=== PATIENT | male | born 1990 | race African-American/Black ===

== ENCOUNTER 2018-04-07 06:46 | Emergency (ER) | payer OTHER ==
[~2018-04-07] VITALS: Ht 177.8 cm; Wt 68.0 kg
[~2018-04-07 06:46] MED LIST: ZOLPIDEM TARTRAT5 MG ORAL
[2018-04-07] MEDS ORDERED: XOPENEX0.63 MG/3 HHN (06:51)
--- NOTE | 2018-04-07 06:57 | Emergency Room Report ---
History of Present Illness General Chief Complaint: General Complaint Source: Patient, EMS Present Illness HPI The patient is brought in by EMS. Apparently he was trying to break in through a security gate at the [facility]. He claims someone was chasing him. He complained about some shortness of breath and told paramedics he had a history of asthma. His oxygen saturation is 98% at that time and his lungs were clear. The patient does smoke cigarettes. He denies any previous psychiatric problems and denies doing drugs at this time. He states he feels dehydrated at this time. He denies any head trauma. The chest pain, nausea vomiting diarrhea, dysuria, joint pain. No rashes. Allergies: Coded Allergies: No Known Allergies (Unverified , 04/07/18) Patient History Past Medical History: see triage record Social History: Reports: smoking, drug use - see tox Social History Narrative on streets Reviewed Nursing Documentation: PMH: Agreed; PSxH: Agreed Nursing Documentation-PMH Hx Cardiac Problems: Yes - heart murmur Hx Asthma: Yes Hx Seizures: Yes Review of Systems All Other Systems: negative except mentioned in HPI Physical Exam Vital Signs Date Time Temp Pulse Resp B/P (MAP) Pulse Ox O2 Delivery O2 Flow Rate FiO2 04/07/18 06:39 98.2 106 22 123/81 96 Room Air 98.2 Sp02 EP Interpretation: reviewed, normal General Appearance: well appearing, no apparent distress, GCS 15, thin Head: normocephalic Eyes: bilateral eye PERRL, bilateral eye Scleral Injection ENT: moist mucus membranes Neck: supple Respiratory: chest non-tender, lungs clear, normal breath sounds Cardiovascular #1: regular rate, rhythm Cardiovascular #2: 2+ radial (R) Gastrointestinal: normal inspection, normal bowel sounds, non tender, no mass, non-distended, scaphoid Genitourinary: no CVA tenderness Musculoskeletal: back normal, gait/station normal, normal range of motion Neurologic: alert, motor strength/tone normal, DTRs symmetric, sensory intact, cerebellar normal, speech normal, oriented - X2 Psychiatric: depressed affect - sleepy Skin: normal inspection, warm/dry Medical Decision Making Diagnostic Impression: Primary Impression: Amphetamine abuse Additional Impressions: Renal insufficiency UTI (urinary tract infection) Qualified Codes: N30.00 - Acute cystitis without hematuria ER Course Patient presents alleging someone was chasing him and complaining about shortness of breath. Differential includes asthma exacerbation, psychosis, drug ingestion, electrolyte imbalance amongst others. He'll be evaluated with EKG, chest x-ray and labs. The patient will receive IV hydration. Labs significant for + amphetamines, pyuria and min renal insufficiency. CXR clear. EKG no injury. Antibiotics begun for UTI. Sleeping. Improved with IV hydration. Patient stable for outpatient observation and treatment. Laboratory Tests Test 04/07/18 07:05 04/07/18 07:18 Urine Color Yellow Urine Appearance Clear Urine pH 5 (4.5-8.0) Urine Specific [place] 1.025 (1.005-1.035) Urine Protein 3+ (NEGATIVE) H Urine Glucose (UA) Negative (NEGATIVE) Urine Ketones 1+ (NEGATIVE) H Urine Occult Blood 1+ (NEGATIVE) H Urine Nitrite Negative (NEGATIVE) Urine Bilirubin Negative (NEGATIVE) Urine Urobilinogen Normal MG/DL (0.0-1.0) Urine Leukocyte Esterase 2+ (NEGATIVE) H Urine RBC 0-2 /HPF (0 - 0) H Urine WBC 10-15 /HPF (0 - 0) H Urine Squamous Epithelial Cells Occasional /LPF Urine Bacteria Occasional /HPF (NONE) Urine Opiates Screen Negative (NEGATIVE) Urine Barbiturates Screen Negative (NEGATIVE) Phencyclidine (PCP) Screen Negative (NEGATIVE) Urine Amphetamines Screen Positive (NEGATIVE) H Urine Benzodiazepines Screen Negative (NEGATIVE) Urine Cocaine Screen Negative (NEGATIVE) Urine Marijuana (THC) Screen Positive (NEGATIVE) H White Blood Count 6.0 K/UL (4.8-10.8) Red Blood Count 6.12 M/UL (4.70-6.10) H Hemoglobin 15.9 G/DL (14.2-18.0) Hematocrit 47.2 % (42.0-52.0) Mean Corpuscular Volume 77 FL (80-99) L Mean Corpuscular Hemoglobin 25.9 PG (27.0-31.0) L Mean Corpuscular Hemoglobin Concent 33.6 G/DL (32.0-36.0) Red Cell Distribution Width 11.2 % (11.6-14.8) L Platelet Count 298 K/UL (150-450) Mean Platelet Volume 7.4 FL (6.5-10.1) Neutrophils (%) (Auto) 63.5 % (45.0-75.0) Lymphocytes (%) (Auto) 22.5 % (20.0-45.0) Monocytes (%) (Auto) 9.8 % (1.0-10.0) Eosinophils (%) (Auto) 3.0 % (0.0-3.0) Basophils (%) (Auto) 1.3 % (0.0-2.0) Sodium Level 139 MMOL/L (136-145) Potassium Level 4.1 MMOL/L (3.5-5.1) Chloride Level 102 MMOL/L (98-107) Carbon Dioxide Level 24 MMOL/L (21-32) Anion Gap 13 mmol/L (5-15) Blood Urea Nitrogen 13 mg/dL (7-18) Creatinine 1.7 MG/DL (0.55-1.30) H Estimate Glomerular Filtration Rate 48.6 mL/min (>60) Glucose Level 90 MG/DL (74-106) Calcium Level 9.5 MG/DL (8.5-10.1) Total Bilirubin 1.3 MG/DL (0.2-1.0) H Direct Bilirubin 0.3 MG/DL (0.0-0.3) Aspartate Amino Transferase (AST) 42 U/L (15-37) H Alanine Aminotransferase (ALT) 37 U/L (12-78) Alkaline Phosphatase 62 U/L (46-116) Total Protein 8.4 G/DL (6.4-8.2) H Albumin 4.4 G/DL (3.4-5.0) Globulin 4.0 g/dL Albumin/Globulin Ratio 1.1 (1.0-2.7) Salicylates Level 0.4 ug/mL (2.8-20) L Acetaminophen Level < 2 MCG/ML (10-30) L Serum Alcohol < 3 mg/dL EKG Diagnostic Results Rate: normal Rhythm: NSR ST Segments: no acute changes Rhythm Strip Diag. Results EP Interpretation: yes Rhythm: NSR, no PVC's, no ectopy Chest X-Ray Diagnostic Results Chest X-Ray Diagnostic Results : Chest X-Ray Ordered: Yes # of Views/Limited/Complete: 1 View Indication: Shortness of Breath EP Interpretation: Yes Interpretation: no consolidation, no effusion, no pneumothorax Impression: No acute disease Electronically Signed by: Aaron Lynn MD Last Vital Signs Date Time Temp Pulse Resp B/P (MAP) Pulse Ox O2 Delivery O2 Flow Rate FiO2 04/07/18 13:40 98.2 81 18 138/74 97 Room Air 98.2 Status: improved Disposition: HOME, SELF-CARE Condition: Improved Scripts Nitrofurantoin Monohyd/M-Cryst* (MACROBID 100 MG*) 100 Mg Capsule 100 MG ORAL EVERY 12 HOURS, #14 CAP Prov: Aaron Lynn M.D. 04/07/18 Aaron Lynn M.D. Apr 07, 2018 06:57
[2018-04-07 07:30] LABS: APPEARANCE,URINE CLEAR; BILIRUBIN, URINE NEGATIVE (NEGATIVE); GLUCOSE, URINE (UA) NEGATIVE (NEGATIVE); KETONES,URINE 1+ (NEGATIVE); LEUKOCYTE ESTERASE ,URINE 2+ (NEGATIVE); NITRITE,URINE NEGATIVE (NEGATIVE); PH,URINE 5 (4.5-8.0); PROTEIN,URINE 3+ (NEGATIVE); UROBILINOGEN,URINE NORMAL MG/DL (0.0-1.0)
[2018-04-07 07:31] LABS: BASOPHILS % (AUTO) 1.3 % (0.0-2.0); HEMATOCRIT 47.2 % (42.0-52.0); HEMOGLOBIN 15.9 G/DL (14.2-18.0); LYMPHOCYTES % (AUTO) 22.5 % (20.0-45.0); MEAN CORPUSCULAR VOLUME 77 FL (80-99); MONOCYTES % (AUTO) 9.8 % (1.0-10.0); NEUTROPHILS % (AUTO) 63.5 % (45.0-75.0); PLATELET COUNT 298 K/UL (150-450); RED BLOOD COUNT 6.12 M/UL (4.70-6.10); RED CELL DISTRIBUTION WIDTH 11.2 % (11.6-14.8)
[2018-04-07 07:39] LABS: COLOR,URINE YELLOW
[2018-04-07 07:42] LABS: ANION GAP 13 mmol/L (5-15); BLOOD UREA NITROGEN 13 mg/dL (7-18); CALCIUM 9.5 MG/DL (8.5-10.1); CARBON DIOXIDE 24 MMOL/L (21-32); CHLORIDE 102 MMOL/L (98-107); CREATININE 1.7 MG/DL (0.55-1.30); POTASSIUM 4.1 MMOL/L (3.5-5.1); SODIUM 139 MMOL/L (136-145)
[2018-04-07] MEDS ORDERED: cefTRIAXone 1 GM in NS 55 ML IVPB ONE (07:45)
[2018-04-07 07:51] LABS: ALANINE AMINOTRANSFERASE 37 U/L (12-78); ALBUMIN 4.4 G/DL (3.4-5.0); ALBUMIN/GLOBULIN RATIO 1.1 (1.0-2.7); ALKALINE PHOSPHATASE 62 U/L (46-116); ASPARTATE AMINO TRANSFERASE 42 U/L (15-37); BILIRUBIN,TOTAL 1.3 MG/DL (0.2-1.0)
[2018-04-07 08:03] LABS: BILIRUBIN,DIRECT 0.3 MG/DL (0.0-0.3)
[2018-04-07 08:44] VITALS: BP 138/74
--- NOTE | 2018-04-07 09:17 | Diagnostic Imaging Report ---
PORTABLE AP UPRIGHT CXR: HISTORY: 27-year-old male with dyspnea. COMPARISON: None. FINDINGS: The lungs are grossly clear, allowing for technique and mild patient rotation. Heart size is normal. No abnormal mediastinal widening. No obvious pneumothorax or effusion. There is mild apex leftward curvature of the upper thoracic spine. IMPRESSION: No acute abnormality identified to explain dyspnea.
[2018-04-07] MEDS ORDERED: NITROFURANTOIN100 M2 ORAL (13:32)
[2018-04-07 13:40] VITALS: BP 138/74
--- NOTE | 2018-04-07 18:31 | Cardiology Report ---
APPROVED REPORT EKG Measurement Heart [id number] Normal sinus rhythm with sinus arrhythmia Moderate voltage criteria for LVH, may be normal variant Borderline ECG
== END 2018-04-07 13:40 | disposition home or self-care (01) ==
LOC: EDBD 06:46 → EMR 07:00
DX: F15.10 Other stimulant abuse, uncomplicated (principal); N28.9 Disorder of kidney and ureter, unspecified; N30.00 Acute cystitis without hematuria; F17.210 Nicotine dependence, cigarettes, uncomplicated
CPT/HCPCS: 36415; 71045; 80053; 80307; 80329; 81003; 82248; 85025; 87086; 93005; 99283; J0696